=== PATIENT | male | born 1950 | race Native Hawaiian/Other Pacific Islander ===

== ENCOUNTER → 2017-03-12 20:23 | Outpatient (CLI) | payer OTHER ==
[~2017-03-12 20:23] MED LIST: AMLO2.5T PO; ASPIR-8181 MG OR; GABA300C2 PO; LABETALOL200 MG OR; LIPITOR80 MG PO; LISI20TA11 PO; METF500T PO; PLAVIX75 MG PO
== END | disposition home or self-care (01) ==
LOC: AMB 20:23
DX: Z04.1 Encounter for examination and observation following transport accident (principal)

== ENCOUNTER 2017-03-12 22:05 | Emergency (ER) | payer OTHER ==
[~2017-03-12] VITALS: Ht 167.6 cm; Wt 83.9 kg
[2017-03-12 22:10] VITALS: TEMP 97.9
[2017-03-12 23:40] VITALS: BP 173/96
== END 2017-03-12 23:41 | disposition home or self-care (01) ==
LOC: ED 22:05
DX: M62.838 Other muscle spasm (principal); V43.62XA Car passenger injured in collision with other type car in traffic accident, initial encounter; Y92.89 Other specified places as the place of occurrence of the external cause
CPT/HCPCS: 90471; 90715; 96372; 99283; J1885

== ENCOUNTER 2019-01-19 08:02 | Outpatient (CLI) | payer OTHER | END 2019-01-19 22:08 | disposition home or self-care (01) | LOC: MRI 08:02 | DX: M54.16 Radiculopathy, lumbar region (principal) ==